=== PATIENT | female | born 1980 | race Caucasian/White ===

== ENCOUNTER 2016-10-11 11:32 | Emergency (ER) | payer BC ==
--- NOTE | 2016-10-11 12:02 | EDPHY ---
H & P Stated Complaint: 4 weeks of cramping, recent cramping and bleeding. Time Seen by Provider: 10/11/16 11:50 HPI/ROS: CHIEF COMPLAINT: Vaginal bleeding and cramping, HISTORY OF PRESENT ILLNESS: 36-year-old female currently 4 weeks , visiting from [facility], complaining of suprapubic cramping and vaginal spotting and bleeding this morning. No passage of clots. She is being followed /treated by a fire patrol and has current IVF with placement of single embryo on September 18. She denies: Back or flank pain, urinary abnormality, chest pain, dyspnea, syncope, near syncope, nausea, vomiting. She is planning on returning to home hot today PRIMARY CARE PROVIDER: in [facility] REVIEW OF SYSTEMS: A ten point review of systems was performed and is negative with the exception of the items mentioned in the HPI PAST MEDICAL & SURGICAL HISTORY: currently 4 weeks via IVF with single implanted and [place] SOCIAL HISTORY: PHYSICAL EXAM (Prior to examination, patient consented to physical exam, hands were washed and my usual and customary physical exam procedures followed) 1) GENERAL: Well-developed, well-nourished, alert and oriented. Appears to be in no acute distress. 2) HEAD: Normocephalic, atraumatic 3) HEENT: Pupils equal, round, reactive to light bilaterally. Sclera anicteric. 4) NECK: Full range of motion, no meningeal signs. 5) LUNGS: Clear auscultation bilaterally, no wheezes, no rhonchi, no retractions. 6) HEART: Regular rate and rhythm, no murmur, no heave, no gallop. 7) ABDOMEN: No guarding, no rebound, no focal tenderness, negative McBurney's, negative Reyes's, negative Rovsing's, negative peritoneal sign, unable to elicit abdominal pain on exam 8) MUSCULOSKELETAL: No peripheral edema or discoloration. 9) BACK: No CVA tenderness. 10) SKIN: No rash, no petechiae. 11) PELVIC (with female nurse at bedside): Normal female external genitalia, no lesions visualized. Speculum examination reveals os closed, old blood and clot in the vaginal vault with no active bleeding., DIFFERENTIAL DIAGNOSIS: [in no particular include but limited to ectopic , threatened miscarriage, spontaneous miscarriage - Personal History LMP (Females 10-55): Current Tetanus Diphtheria and Acellular Pertussis (TDAP): Yes - Medical/Surgical History Hx Asthma: No Hx Chronic Respiratory Disease: No Hx Diabetes: No Hx Cardiac Disease: No Hx Renal Disease: No Hx Cirrhosis: No Hx Alcoholism: No Hx HIV/AIDS: No Hx Splenectomy or Spleen Trauma: No Other PMH: Denies - Social History Smoking Status: Never smoked Constitutional: Initial Vital Signs Temperature (C) 36.5 C 10/11/16 11:42 Heart Rate 75 10/11/16 11:42 Respiratory Rate 16 10/11/16 11:42 Blood Pressure 116/70 10/11/16 11:42 O2 Sat (%) 99 10/11/16 11:42 O2 Delivery Mode Room Air Allergies/Adverse Reactions: amoxicillin Allergy (Verified 10/11/16 11:45) Home Medications: Medication Instructions Recorded Cephalexin [Keflex] 500 mg PO QID 7 Days 10/11/16 Estrogens, Conjugated 10/11/16 Progesterone 10/11/16 Medical Decision Making - Diagnostics Imaging Results: Imaging Impressions Obstetrics Ultrasound 10/11/16 12:00 Impression: 1. Early (normal versus abnormal) intrauterine gestational sac with no discernible embryo or yolk sac. Recommend follow-up pelvic ultrasound in 5-10 days and following serial quantitative beta hCG. 2. Moderate to large subchorionic hemorrhage deforming the suspected gestational sac. 3. No evidence of ectopic . 4. Normal ovaries. Findings discussed with emergency department physician business office assistant, Sha Vásquez MD on October 11, 2016 at 3:16 p.m. Images reviewed by myself ED Course/Re-evaluation: This patient has been re-evaluated with serial examinations in this case discussed with Dr. Rodriguez in the emergency department, secondary supervising physician. I discussed with the patient her imaging results. She has been informed that spontaneous is not ruled out. There is no evidence of ectopic on diagnostic studies. I stressed the importance of close follow-up with machine splitter when she returns to [place] later on or tomorrow (Wednesday). I have given the name of local OBGYN if she decides sustained this area however. She has been given RhoGAM update. She is noted to have bacteriuria on urinalysis. We discussed asymptomatic bacteriuria in and importance of treatment. Urine is cultured and she is started on Keflex. She feels comfortable being discharged. - Data Points Laboratory Results: Laboratory Results 10/11/16 12:12 10/11/16 12:12 10/11/16 10/11/16 10/11/16 12:35 12:12 12:12 WBC RBC Hgb Hct MCV MCH MCHC RDW Plt Count MPV Neut % (Auto) Lymph % (Auto) Howell % (Auto) Eos % (Auto) Baso % (Auto) Nucleat RBC Rel Count Absolute Neuts (auto) Absolute Lymphs (auto) Absolute Monos (auto) Absolute Eos (auto) Absolute Basos (auto) Absolute Nucleated RBC Immature Gran % Immature Gran # Sodium 138 mEq/L mEq/L (134-144) Potassium 3.9 mEq/L mEq/L (3.5-5.2) Chloride 106 mEq/L mEq/L (97-110) Carbon Dioxide 20 mEq/l L mEq/l (22-31) Anion Gap 12 mEq/L mEq/L (8-16) BUN 9 mg/dL mg/dL (7-23) Creatinine 0.8 mg/dL mg/dL (0.6-1.0) Estimated GFR > 60 Glucose 93 mg/dL mg/dL (70-100) Calcium 9.3 mg/dL mg/dL (8.5-10.4) Beta HCG, Quant 00350.00 mIU/mL H mIU/mL (0-4.83) Urine Color SUKHWINDER Urine Appearance HAZY Urine pH 6.0 (5.0-7.5) Ur Specific Jackson 1.002 (1.002-1.030) Urine Protein 1+ H (NEGATIVE) Urine Ketones TRACE H (NEGATIVE) Urine Blood 3+ H (NEGATIVE) Urine Nitrate NEGATIVE (NEGATIVE) Urine Bilirubin NEGATIVE (NEGATIVE) Urine Urobilinogen NEGATIVE EU EU (0.2-1.0) Ur Leukocyte Esterase NEGATIVE (NEGATIVE) Urine RBC 10-15 /hpf H /hpf (0-3) Urine WBC 0-1 /hpf /hpf (0-3) Ur Epithelial Cells TRACE /lpf /lpf (NONE-1+) Urine Bacteria 1+ /hpf H /hpf (NONE SEEN) Urine Glucose NEGATIVE (NEGATIVE) Patient ABO/Rh O NEGATIVE Antibody Screen NEGATIVE 10/11/16 12:12 WBC 6.29 10^3/uL 10^3/uL (3.80-9.50) RBC 4.86 10^6/uL 10^6/uL (4.18-5.33) Hgb 13.6 g/dL g/dL (12.6-16.3) Hct 41.3 % % (38.0-47.0) MCV 85.0 fL fL (81.5-99.8) MCH 28.0 pg pg (27.9-34.1) MCHC 32.9 g/dL g/dL (32.4-36.7) RDW 14.3 % % (11.5-15.2) Plt Count 146 10^3/uL L 10^3/uL (150-400) MPV 11.9 fL H fL (8.7-11.7) Neut % (Auto) 67.3 % % (39.3-74.2) Lymph % (Auto) 21.1 % % (15.0-45.0) Howell % (Auto) 5.7 % % (4.5-13.0) Eos % (Auto) 4.8 % % (0.6-7.6) Baso % (Auto) 0.6 % % (0.3-1.7) Nucleat RBC Rel Count 0.0 % % (0.0-0.2) Absolute Neuts (auto) 4.23 10^3/uL 10^3/uL (1.70-6.50) Absolute Lymphs (auto) 1.33 10^3/uL 10^3/uL (1.00-3.00) Absolute Monos (auto) 0.36 10^3/uL 10^3/uL (0.30-0.80) Absolute Eos (auto) 0.30 10^3/uL 10^3/uL (0.03-0.40) Absolute Basos (auto) 0.04 10^3/uL 10^3/uL (0.02-0.10) Absolute Nucleated RBC 0.00 10^3/uL 10^3/uL (0-0.01) Immature Gran % 0.5 % % (0.0-1.1) Immature Gran # 0.03 10^3/uL 10^3/uL (0.00-0.10) Sodium Potassium Chloride Carbon Dioxide Anion Gap BUN Creatinine Estimated GFR Glucose Calcium Beta HCG, Quant Urine Color Urine Appearance Urine pH Ur Specific Jackson Urine Protein Urine Ketones Urine Blood Urine Nitrate Urine Bilirubin Urine Urobilinogen Ur Leukocyte Esterase Urine RBC Urine WBC Ur Epithelial Cells Urine Bacteria Urine Glucose Patient ABO/Rh Antibody Screen Departure - Departure Disposition: Home, Routine, Self-Care Clinical Impression: possible miscarriage, Asymptomatic bacteriuria Condition: Good Instructions: Threatened Miscarriage (ED), Urinary Tract Infection in (ED) Additional Instructions: Recommend no lifting greater than 10 lb, no sexual intercourse, bedrest until seen and cleared by your OBGYN. Definitely if you have dizziness, worsening abdominal pain or vaginal bleeding go to the closest emergency department for evaluation. Referrals: See, your OBGYN on Wednesday [Other] - As per Instructions Prescriptions: Cephalexin [Keflex] 500 mg PO QID 7 Days
[2016-10-11 12:21] LABS: % IMMATURE GRANULYOCYTES 0.5 % (0.0-1.1); ABSOLUTE IMMATURE GRANULOCYTES 0.03 10^3/uL (0.00-0.10); ADD DIFF? NO; ADD MORPH? NO; ADD SCAN? NO; ATYPICAL LYMPHOCYTE FLAG 0 (0-99); FRAGMENT RBC FLAG 0 (0-99); HEMATOCRIT 41.3 % (38.0-47.0); HEMOGLOBIN 13.6 g/dL (12.6-16.3); LEFT SHIFT FLG 0 (0-99); LIPEMIA HEMOLYSIS FLAG 80 (0-99); MEAN CELL HEMOGLOBIN CONCENTR. 32.9 g/dL (32.4-36.7); MEAN PLATELET VOLUME 11.9 fL (8.7-11.7); PLATELET CLUMPS FLAG 0 (0-99); PLATELET COUNT 146 10^3/uL (150-400); RED BLOOD CELL COUNT 4.86 10^6/uL (4.18-5.33); RED CELL DISTRIBUTION WIDTH 14.3 % (11.5-15.2)
[2016-10-11 12:42] LABS: ANION GAP 12 mEq/L (8-16); CALCIUM 9.3 mg/dL (8.5-10.4); CARBON DIOXIDE 20 mEq/l (22-31); CHLORIDE 106 mEq/L (97-110); CREATININE 0.8 mg/dL (0.6-1.0); GLOMERULAR FILTRATION RATE > 60; GLUCOSE 93 mg/dL (70-100); POTASSIUM 3.9 mEq/L (3.5-5.2); SODIUM 138 mEq/L (134-144)
[2016-10-11 12:47] LABS: COLOR AMBER; LEUKOCYTE ESTERASE,URINE NEGATIVE (NEGATIVE); NITRITE,URINE NEGATIVE (NEGATIVE)
[2016-10-11 12:50] LABS: BACTERIA 1+ /hpf (NONE SEEN)
[2016-10-11 12:51] LABS: WBC,URINE 0-1 /hpf (0-3)
[2016-10-11 15:19] VITALS: RESP 20
[2016-10-11] MEDS ORDERED: CEPHALEXIN 500 MG CAP PO ONE ×2 (16:21→16:22)
[2016-10-11 16:33] VITALS: BP 115/71; PULSE 85; TEMP 98.1; O2SAT 95
== END 2016-10-11 16:45 | disposition home or self-care (01) ==
DX: O23.41 Unspecified infection of urinary tract in pregnancy, first trimester (principal); B96.89 Other specified bacterial agents as the cause of diseases classified elsewhere; Z3A.01 Less than 8 weeks gestation of pregnancy